=== PATIENT | male | born 1945 | race Caucasian/White ===

== ENCOUNTER → 2021-06-15 09:24 | Outpatient (CLI) | payer MEDICARE, SELFPAY ==
--- NOTE | ~2021-06-15 | XR_ITS ---
XR abdomen/kub 1V 06/15/2021 10:30 INDICATION: Hematuria TECHNIQUE: KUB COMPARISON: No prior studies for comparison. FINDINGS: Bowel gas pattern is normal. Moderate colonic fecal loading. There is no evidence of free a ir, mass, organomegaly, ascites or obstruction. No abnormal calculi are seen. The bones appear inta ct. Moderate lumbar spondylosis. IMPRESSION: 1: No acute abdominal abnormality identified. Reviewed, dictated and finalized at location A.
== END ==
PROVIDERS: PCP Family Medicine; Visit Provider Family Medicine
DX: R31.9 Hematuria, unspecified (principal); M47.816 Spondylosis without myelopathy or radiculopathy, lumbar region
CPT/HCPCS: 74018

== ENCOUNTER → 2021-06-21 10:51 | Outpatient (CLI) | payer MEDICARE, SELFPAY ==
--- NOTE | ~2021-06-21 | CT_ITS ---
EXAMINATION: CT abdomen pelvis wo con DATE: 06/21/2021 11:11 INDICATION: Gross hematuria TECHNIQUE: Computed tomography (CT) of the abdomen and pelvis was performed without intravenous contr ast. The dose-length product (DLP) was 477.95 mGy-cm. Automated exposure control and iterative recons truction technique were employed. COMPARISON: None FINDINGS: There is a 10 mm nodule of left lower lobe. The heart size is normal. The liver, spleen, pa ncreas, gallbladder, and adrenal glands are normal. There is a 1.9 cm cyst of the right kidney. The l eft kidney is unremarkable. No stones are identified in the kidneys, ureters, or bladder. There is no hydronephrosis or hydroureter. No pathologically enlarged abdominal or pelvic lymph nodes are identi fied. There is calcified atherosclerosis of the aorta and many of the other arteries. There is no fawad e intraperitoneal gas or evidence of bowel obstruction. The appendix is normal. Colonic diverticulosi s is present without evidence of diverticulitis. There appear to be changes of left inguinal hernia r epair. There are bilateral L5 pars defects with grade 1 anterolisthesis of L5 on S1. A tiny fat-conta ining umbilical hernia is noted. IMPRESSION: 1. No CT correlate for the patient's symptoms. Reviewed, dictated and finalized at location A.
== END ==
PROVIDERS: PCP Family Medicine; Visit Provider Physician Assistant
DX: R31.9 Hematuria, unspecified (principal); R91.1 Solitary pulmonary nodule
CPT/HCPCS: 74176

== ENCOUNTER 2021-09-29 09:59 | Outpatient (CLI) | payer MEDICARE, SELFPAY ==
--- NOTE | ~2021-09-29 | CT_ITS ---
EXAMINATION: CT diagnostic chest wo con EXAM DATE: 09/29/2021 10:25 INDICATION: R91.1 - Solitary pulmonary nodule TECHNIQUE: Spiral CT of the chest without contrast. Axial, coronal and sagittal images of the chest were reviewed. Coronal maximum intensity pixel images of chest reviewed. The dose-length product ( DLP) for this examination was 114.94 mGy-cm. The exposure was tailored according to patient size (au to mA exposure control), and iterative reconstruction (ASIR) was used as additional dose reduction te chnique. Correlation is made to abdomen pelvis CT 06/21/2021. FINDINGS: Round well circumscribed solid pleural-based left lower lobe nodule without spiculations i s unchanged, therefore most likely a noncalcified granuloma. Additional longer interval one-year foll ow-up CT is recommended. There are no pleural or pericardial effusions. Tracheobronchial tree is p atent. There is no mediastinal, hilar or axillary lymphadenopathy. There is no pneumothorax. He art normal in size. There is moderate to severe coronary arterial calcification, arterial sclerosis . Upper abdomen is unremarkable. There is moderate thoracic spondylosis without osteoblastic or os teolytic lesions identified. Patient has diffuse idiopathic skeletal hyperostosis (DISH). IMPRESSION: 1. Stable left lower lobe nodule probably granuloma; one-year follow-up chest CT without contrast re commended. 2. Rather extensive coronary artery calcification; consider cardiology consult if not recently evalu ated. Reviewed, dictated and finalized at location A. [employer] OFFICER IMPRESSION: 1. Stable left lower lobe nodule probably granuloma; one-year follow-up chest CT without contrast recommended. 2. Rather extensive coronary artery calcification; consider cardiology consult if not recently evaluated.
== END 2021-09-29 10:00 | disposition home or self-care (01) ==
LOC: ANHIMG 10:04
PROVIDERS: PCP Family Medicine; Visit Provider Physician Assistant
DX: R91.1 Solitary pulmonary nodule (principal); M47.814 Spondylosis without myelopathy or radiculopathy, thoracic region; M48.14 Ankylosing hyperostosis [Forestier], thoracic region
CPT/HCPCS: 71250

== ENCOUNTER 2021-10-06 00:05 | Day surgery (SDC) | payer MEDICARE, SELFPAY ==
[2021-09-20 13:53] VITALS: BMI 28.0
--- NOTE | 2021-10-05 09:21 | P.PNAN_ITS ---
Anes - Initial Pre Proc Eval Procedure: Operation Date: 10/06/21 08:00 Proposed Procedures p Screening Colonoscopy - Collin Mccormick MD Date/Time: 10/05/21 09:21 Surgeon: Collin Mccormick MD Pre Op Diagnosis: hx of colon polyps Patient Data Age: 76 Gender: M Height: 1.75 m Weight: 86 kg Allergies Allergy/AdvReac Type Severity Reaction Status Date / Time Penicillins Allergy Unknown Unknown Verified 10/06/21 06:40 Home Medications Medication Instructions Recorded Confirmed Type aspirin 81 mg tablet,delayed 81 mg PO DAILY 10/25/20 09/20/21 History release simvastatin 40 mg tablet 40 mg PO QPM #90 tablet 03/15/21 09/20/21 Rx quinapril 40 mg tablet 40 mg PO DAILY #90 tablet 07/19/21 09/20/21 Rx metoprolol succinate 25 mg 25 mg PO DAILY #30 tablet 08/08/21 09/20/21 Rx tablet,extended release 24 hr lactobacillus combination no.8 3,000,000 cell PO DAILY 09/20/21 09/20/21 History [Adult Probiotic] mecobalamin (vitamin B12) 1,000 mcg PO DAILY 09/20/21 09/20/21 History Patient hx anesthesia problems: none Family hx anesthesia problems: none Results Review: All pre-operative results and documents have been reviewed as part of the pre-operative evaluation. [facility] Past Medical History Medical History (Updated 10/05/21 @ 11:47 by Collin Mccormick MD) Acute gout Benign hypertension Chronic renal insufficiency, stage III (moderate) Colon polyp CVA (cerebral vascular accident) (~10/14/18) Hyperlipidemia Increased urinary frequency (~01/30/19) Surgical History Surgical History History of loop recorder Family History Family History Mother Cerebrovascular accident Family history of transient ischemic attacks Other Diabetes mellitus Family history of malignant neoplasm of breast in first degree relative Social History Social History Smoking status: Former smoker Tobacco type: cigarettes Second hand tobacco smoke exposure: No Smoking end date: 07/24/07 Alcohol intake: current Drinks per week: 3 Alcohol use details: Occasional Substance use: never Substance use type: does not use Living arrangements: with family Gender identity (if verbalized by the patient): Male Sexual Orientation (if Verbalized by the Patient): Straight or Heterosexual Spiritual care concerns: No Anes - Eval Final PreProcedure Day of Procedure 10/05/21 09:21 Patient weight: overweight Heart: regular rate and rhythm Lungs: clear to auscultation and normal air movement Airway: Mallampati scale class II Neurological: alert and oriented Last oral intake: >/= 8 hours ASA classification: III Emergent: no Anesthetic plan: proceed Anesthesia type and monitoring: general GIVS and standard monitoring Results Review: All pre-operative results and documents have been reviewed as part of the pre-operative evaluation. Informed Consent: The patient's anesthetic plan and its attendant risks and benefits were discussed with the patient/family/POA. Questions were solicited and answers provided to the satisfaction of the patient/family/POA.
--- NOTE | 2021-10-05 11:47 | PM.HPGS ---
History of Present Illness History of Present Illness Consent: Risks, benefits, and alternatives have been discussed and questions answered. Patient agrees to proceed with procedure. Chief complaint: hx of colon polyps Narrative: Angel Canchola is a 76 year old male referred for colon cancer screening. He has a history of polyps, including having 1 polyp removed at the time of his last colonoscopy 7 years ago. Review of Systems Review of Systems: All systems reviewed & are unremarkable except as noted in HPI and below PMFSH Past Medical History Medical History Acute gout Benign hypertension Chronic renal insufficiency, stage III (moderate) Colon polyp CVA (cerebral vascular accident) (~10/14/18) Hyperlipidemia Increased urinary frequency (~01/30/19) Surgical History Surgical History History of loop recorder Family History Family History Mother Cerebrovascular accident Family history of transient ischemic attacks Other Diabetes mellitus Family history of malignant neoplasm of breast in first degree relative Social History Social History Smoking status: Former smoker Tobacco type: cigarettes Second hand tobacco smoke exposure: No Smoking end date: 07/24/07 Alcohol intake: current Drinks per week: 3 Alcohol use details: Occasional Substance use: never Substance use type: does not use Living arrangements: with family Gender identity (if verbalized by the patient): Male Sexual Orientation (if Verbalized by the Patient): Straight or Heterosexual Spiritual care concerns: No Meds Home Medications and Allergies Home Medications Medication Instructions Recorded Confirmed Type aspirin 81 mg tablet,delayed 81 mg PO DAILY 10/25/20 09/20/21 History release simvastatin 40 mg tablet 40 mg PO QPM #90 tablet 03/15/21 09/20/21 Rx quinapril 40 mg tablet 40 mg PO DAILY #90 tablet 07/19/21 09/20/21 Rx metoprolol succinate 25 mg 25 mg PO DAILY #30 tablet 08/08/21 09/20/21 Rx tablet,extended release 24 hr lactobacillus combination no.8 3,000,000 cell PO DAILY 09/20/21 09/20/21 History [Adult Probiotic] mecobalamin (vitamin B12) 1,000 mcg PO DAILY 09/20/21 09/20/21 History Allergies Allergy/AdvReac Type Severity Reaction Status Date / Time Penicillins Allergy Unknown Unknown Verified 10/06/21 06:40 Exam Resp: Auscultation: clear to auscultation bilaterally Cardio: Rate: regular rate Rhythm: regular rhythm GI: GI Palp: Yes Soft to palpation and No Tenderness to palpation present (GI) Assessment and Plan Assessment and plan (1) Colon cancer screening: Code(s): Z12.11 - Encounter for screening for malignant neoplasm of colon Status: Acute Assessment and Plan: Colonoscopy with possible biopsy or polypectomy or cautery or injection of substances.
[2021-10-06 06:41] VITALS: BP 156/89; PULSE 86; RESP 20; TEMP 36.3; O2SAT 97
[2021-10-06] MEDS: LACTATED RINGERS 1,000 ML 150 ML IV CONT (06:44)
[2021-10-06 08:24] VITALS: BP 142/80; PULSE 85; RESP 28; O2SAT 98
[2021-10-06 08:34] VITALS: BP 143/84; PULSE 84; RESP 26; O2SAT 99
[2021-10-06 08:44] VITALS: BP 160/80; PULSE 73; RESP 22; O2SAT 100
== END 2021-10-06 09:06 | disposition home or self-care (01) ==
PROVIDERS: PCP Family Medicine; Visit Provider Internal Medicine Gastroenterology
PROC: 0DJD8ZZ Inspection of Lower Intestinal Tract, Via Natural or Artificial Opening Endoscopic (ICD-10-PCS; CPT 45378; principal; 2021-10-06 08:00)
DX: Z12.11 Encounter for screening for malignant neoplasm of colon (principal); Z86.010 Personal history of colon polyps; K64.8 Other hemorrhoids; K57.30 Diverticulosis of large intestine without perforation or abscess without bleeding; I12.9 Hypertensive chronic kidney disease with stage 1 through stage 4 chronic kidney disease, or unspecified chronic kidney disease; N18.30 Chronic kidney disease, stage 3 unspecified; Z86.73 Personal history of transient ischemic attack (TIA), and cerebral infarction without residual deficits; E78.5 Hyperlipidemia, unspecified; Z87.891 Personal history of nicotine dependence; Z79.82 Long term (current) use of aspirin
CPT/HCPCS: G0105; J2704; J7120

== ENCOUNTER 2022-04-18 09:45 | Outpatient (RCR) | payer MEDICARE, SELFPAY | END 2022-04-18 11:33 | disposition home or self-care (01) | LOC: ANHCPREHAB 09:45 | PROVIDERS: PCP Family Medicine | DX: Z95.1 Presence of aortocoronary bypass graft (principal) | CPT/HCPCS: 93798 ==

== ENCOUNTER 2023-06-18 11:08 | Outpatient (CLI) | payer MEDICARE, SELFPAY ==
--- NOTE | ~2023-06-18 | CT_ITS ---
EXAMINATION:CT diagnostic chest wo con DATE: 06/18/2023 11:22 INDICATION: Solitary pulmonary nodule. TECHNIQUE: Computed tomography (CT) of the chest was performed without intravenous contrast. Automate d exposure control and iterative reconstruction technique were employed. The dose-length product (DLP ) was 107.25 mGy-cm. COMPARISON: Chest CT 09/29/2021 FINDINGS: There is mild scarring in paraspinal right lower lobe. There is a 10 mm nodule with central calcification in left lung lower lobe, consistent with old granulomatous disease. There is a stable 3 mm nodule in right upper lobe, likely benign. No pleural effusion. There is left atrial enlargement of the heart. There are coronary artery calcifications. There are changes of coronary artery bypass grafting. No pericardial effusion. There is bilateral gynecomastia. There are gallstones in the gallb ladder, which is normal in size. There are bridging endplate osteophytes at multiple levels in the sp ine, consistent with diffuse idiopathic skeletal hyperostosis (DISH). There is kyphosis of thoracic s pine with mild chronic anterior wedging of multiple vertebral bodies. IMPRESSION: 1. Benign pulmonary nodules. Reviewed, dictated and finalized at location E.
== END 2023-06-18 11:09 | disposition home or self-care (01) ==
PROVIDERS: PCP Family Medicine; Visit Provider Family Medicine
DX: R91.1 Solitary pulmonary nodule (principal); R91.8 Other nonspecific abnormal finding of lung field
CPT/HCPCS: 71250

== ENCOUNTER 2024-03-04 22:15 | Inpatient (IN) | payer MEDICARE, SELFPAY ==
--- NOTE | ~2024-03-04 | CT_ITS ---
CT of the Abdomen and Pelvis: Indication: Abdominal pain Technique: 2.5 mm axial scans were obtained through the abdomen and pelvis following intravenous adm inistration of 100 cc of Omnipaque 350. Dose reduction technique was used on this scan by utilizing a utomated exposure control and iterative reconstruction technique. The dose-length product (DLP) was 6 00.35 mGy-cm. COMPARISON: 06/01/2021 Findings: Scans through the lung bases demonstrates stable left basilar granuloma. The liver, spleen, pancreas, adrenals and kidneys are within normal limits. Tiny gallstones are prese nt. There are atherosclerotic calcifications of the aorta. No lymphadenopathy. No bowel obstruction or bowel wall thickening. There is no evidence to suggest acute appendicitis. Images through the pelvis were performed. Urinary bladder unremarkable. No pelvic mass seen. No ascit es. Left hydrocele present. 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 Impression: Left hydrocele. Cholelithiasis. Reviewed, dictated and finalized at location . Impression: Left hydrocele. Cholelithiasis.
[2024-03-04 22:18] VITALS: BP 150/70; PULSE 95; RESP 18; TEMP 36.7; O2SAT 99
[2024-03-04 22:24] VITALS: BP 150/70
[2024-03-04 22:37] LABS: Basophils Absolute Auto 0.1 K/mm3 (0.0-0.1); Basophils Percent Auto 0.6 % (0.2-1.2); Eosinophils Absolute Auto 0.1 K/mm3 (0-0.3); Eosinophils Percent Auto 1.1 % (0-4.4); Hematocrit 36.8 % (42.0-52.0); Hemoglobin 12.4 g/dL (14.0-18.0); Immature Granulocyte Absolute 0.02 K/mm3 (0.00-0.031); Immature Granulocyte Percent A 0.2 % (0-0.5); Lymphocytes Absolute Auto 3.79 K/mm3 (0.9-3.2); Lymphocytes Percent Auto 46.7 % (18.3-44.2); Mean Corpuscular HGB Conc 33.7 g/dl (32-36); Mean Corpuscular Hemoglobin 33.2 pg (26-34); Mean Corpuscular Volume 98.4 fl (80-100); Mean Platelet Volume 9.9 fl (7.4-10.4); Monocytes Absolute Auto 0.7 K/mm3 (0.1-0.6); Monocytes Percent Auto 8.9 % (2.6-8.5); Neutrophils Absolute Auto 3.4 K/mm3 (1.3-6.7); Neutrophils Percent Auto 42.5 % (45.5-73.1); Platelet Count Result 172 k/mm3 (150-375); Red Blood Count 3.74 M/mm3 (4.6-6.20); Red Cell Distribution Width 13.2 % (11.5-14.5); White Blood Count 8.1 K/mm3 (4.5-10.0)
[2024-03-04 22:42] VITALS: BP 150/70; PULSE 89; RESP 16; O2SAT 96
[2024-03-04 22:46] VITALS: BP 151/91; PULSE 79; RESP 20
[2024-03-04 22:48] LABS: INR 1.1
[2024-03-04 23:12] LABS: Alanine Aminotransferase 18 U/L (6-50); Albumin Level 3.6 g/dL (3.5-5.1); Alkaline Phosphatase 81 U/L (38-126); Anion Gap 8 mmol/L (4-12); Aspartate Amino Transferase 27 U/L (17-59); Bilirubin,Total 0.5 mg/dL (0.2-1.3); Blood Urea Nitrogen 59 mg/dL (9-20); Calcium 8.6 mg/dL (8.4-10.2); Carbon Dioxide 22 mmol/L (22-30); Chloride 109 mmol/L (98-107); Estimated CRCL calculation 34 ml/min; Estimated Glomerular Filt Rate 42; Glucose 109 mg/dL (65-110); Potassium 4.5 mmol/L (3.4-5.0); Sodium 139 mmol/L (137-145)
--- NOTE | 2024-03-04 23:43 | ED.GIBLEED ---
HPI - GI Bleed General Chief complaint: GI Bleed <Rachael Simental PA-C - Last Filed: 03/05/24 02:01> Stated complaint: rectal bleeding <Rachael Simental PA-C - Last Filed: 03/05/24 02:01> Time Seen by Provider: 03/04/24 23:13 <Rachael Simental PA-C - Last Filed: 03/05/24 02:01> History of Present Illness HPI Narrative: 78-year-old male with a history of CAD, hypertension, hyperlipidemia, s/p CABG 1 year ago presents to the emergency department for rectal bleeding tonight. Patient states he went to the bathroom around 9:00 p.m. and had a bowel movement with streaks of dark tarry stool and bright red blood. He states he had some lower abdominal pain prior to the bowel movement that has since improved. He reports a history of the same approximately 20 years ago where he was diagnosed with diverticulitis. He denies fever, nausea or vomiting, lightheadedness or syncope, chest pain or shortness of breath, dysuria or hematuria. He is not anticoagulated. States his last, last colonoscopy was approximately 3 years ago and was unremarkable. He does have a history of 1-2 polyps on prior colonoscopies. <Rachael Simental PA-C - Last Filed: 03/05/24 02:01> 78-year-old male with a history of CAD, hypertension, hyperlipidemia, s/p CABG 1 year ago presents to the emergency department for rectal bleeding tonight. Patient states he went to the bathroom around 9:00 p.m. and had a bowel movement with streaks of dark tarry stool and bright red blood. He states he had some lower abdominal pain prior to the bowel movement that has since improved. He reports a history of the same approximately 20 years ago where he was diagnosed with diverticulitis. He denies fever, nausea or vomiting, lightheadedness or syncope, chest pain or shortness of breath, dysuria or hematuria. He is not anticoagulated. States his last, last colonoscopy was approximately 3 years ago and was unremarkable. He does have a history of 1-2 polyps on prior colonoscopies. <Emma Cerrato MD - Last Filed: 03/05/24 03:32> Related Data Home medications: Home Medications Medication Instructions Recorded Confirmed mecobalamin (vitamin B12) 1,000 1,000 mcg PO DAILY 09/20/21 04/19/23 mcg chewable tablet aspirin 81 mg tablet,delayed 81 mg PO DAILY 02/27/22 04/19/23 release <Rachael Simental PA-C - Last Filed: 03/05/24 02:01> Allergies/Adverse reactions: Allergies Allergy/AdvReac Type Severity Reaction Status Date / Time Penicillins Allergy Unknown Unknown Verified 03/04/24 22:24 <Rachael Simental PA-C - Last Filed: 03/05/24 02:01> Review of Systems Review of Systems: CONSTITUTIONAL: Denies fever, chills, or sweats. EYES: Denies visual changes, redness, or discharge. ENT: Denies rhinorrhea, congestion, sore throat, or otalgia. CARDIOVASCULAR: Denies chest pain, palpitations, or edema. RESPIRATORY: Denies cough or dyspnea. GASTROINTESTINAL: see HPI GENITOURINARY: Denies dysuria or hematuria. SKIN: Denies rash or itching. MUSCULOSKELETAL: Denies back pain, joint pain, or myalgia. NEUROLOGIC: Denies headache, numbness, or weakness. PSYCHIATRIC: Denies anxiety or depression. <Rachael Simental PA-C - Last Filed: 03/05/24 02:01> [facility] Past Medical History Medical History: Medical History Acute gout Benign hypertension Bilateral wrist pain BPH with urinary obstruction Chronic renal insufficiency, stage III (moderate) Coronary artery disease CVA (cerebral vascular accident) (~10/14/18) Fatigue Folliculitis Hematuria Hyperlipidemia Increased urinary frequency (~01/30/19) Lung nodule seen on imaging study Prediabetes Vitamin B12 deficiency <Rachael Simental PA-C - Last Filed: 03/05/24 02:01> Surgical History Surgical History: Surgical History History of loop recorder History of
[2024-03-05] VITALS (21 sets, daily range): BP systolic 114–185; BP diastolic 58–102; PULSE 59–87; RESP 17–25; TEMP 36.2–36.7; O2SAT 97–100; BMI 26.5
[2024-03-05 00:19] LABS: Appearance Urine Clear (Clear); Bilirubin Urine Negative (Negative); Blood Urine Negative (Negative); Color Urine Yellow (Yellow); Glucose Urine UA Negative (Negative); Ketones Urine Trace mg/dL (Negative); Leukocyte Esterase Ur Negative LEU/UL (Negative); Nitrate Urine Negative (Negative); Protein Urine Negative (Negative); Specific Grav Ur 1.022 (1.001-1.035); pH Urine 5.5 (5.0-9.0)
[2024-03-05] MEDS: PANTOPRAZOLE SODIUM IV 40 MG VIAL 80 MG IV PUSH (00:20)
[2024-03-05] MEDS: SODIUM CHLORIDE 0.9% IV 1,000 ML 999 ML IV CONT ×2 (00:20)
[2024-03-05 00:26] LABS: Add Urine Microscopic? NO
[2024-03-05 00:29] LABS: Lactic Acid Reflex 1.5 mmol/L (0.7-2.0); Lipase 83 U/L (23-300)
--- NOTE | 2024-03-05 04:42 | ADMGEN ---
This patient, Angel Canchola, was admitted to Medical Room 246-01. Patient/family oriented to hospital policies and general routines including ID bracelet, bed and alarms, visiting hours, pain management, procedures, bathroom and other care routines, personal items, smoking policy, room service/diet, and visiting hours. Information on how to activate the Rapid Response Team has been discussed. Patient/Family are encouraged to report perceived risks to care and to ask questions if they do not understand what they are told or what they should do.
--- NOTE | 2024-03-05 08:27 | P.CONGI_ITS ---
I, Conrado Galicia MD, have provided a substantive portion of the care of this patient and discussed the patient with my Nurse Practitioner. I have reviewed any new relevant radiographic and laboratory results including medications. I agree with her documentation as noted below.?I personally performed the medical decision making and much of the history and exam for this encounter. here with new onset of dark tarry stool, he is on aspirin, denies UGIB. Had colonoscopy 2021 that showed diverticulosis and hemorrhoids. Hgb 12, started on iv protonix and will proceed with egd. Assessment and Plan Assessment and plan (1) Melena: Code(s): K92.1 - Melena Status: Acute (2) ABLA (acute blood loss anemia): Code(s): D62 - Acute posthemorrhagic anemia Status: Acute Plan 1) Acute blood loss anemia/melena: Per patient last EGD > 20 years ago. Last colonoscopy 10/06/2021 revealed diverticulosis and internal hemorrhoids. 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 On admission HGB 12, HCT 37, MCV 98, platelets 172, INR 1.1. patient admits to an acute onset of black colored stools yesterday evening around 9:00 p.m. He has had 2 bowel movements since admission that he states varied from formed to loose and more black in color. Patient was on aspirin 81 mg daily prior to admission but denies any other NSAID or anticoagulant use. Denies any other GI complaints. * PPI daily * EGD today * keep patient NPO * care with NSAIDs, aspirin, or anticoagulants * Further recommendations to follow endoscopy Thank you very much for allowing me to share in the care of this very nice pa cristal. This report may have been done utilizing a voice recognition system. Attempts have been made to correct errors. However, there may be uncorrected grammatical, spelling, and recognition errors present. GI Consult Note Consult date/time: 03/05/24 08:27 Reason for consult: GI bleed HPI: Angel Canchola is a 78 year old male Past medical surgical history of HTN, CAD, HLD, GOUT, CKD stage 3, CVA, Hx of loop recorder, diverticulitis and s/p 4 vessel CABG 1 year ago. He presented to the emergency room yesterday with complaints of rectal bleeding. GI consult for GI bleed. Patient states that yesterday around 9:00 p.m. he had an acute onset of black stools. He has had 2 bowel movements since admission that he states were formed to loose and more also black in color. He otherwise denies any GI complaints. Prior to admission he was having daily bowel movements that were formed and non urgent. He denies abdominal pain, nausea, vomiting, bloating, odynophagia, dysphagia, reflux, regurgitation, early satiety, unexplained weight loss, appetite loss, diarrhea, constipation, or hematochezia. He was on aspirin 81 mg daily prior to admission but denies any other NSAID or anticoagulant use. ENDOSCOPY HISTORY: EGD: Per patient last EGD performed > 20 year ago COLONOSCOPY: 10/06/2021 (Dr. Mccormick) for history of colon polyps * a few small sized internal hemorrhoids seen in the rectum * Multiple diverticula present in sigmoid colon * 5 year repeat colonoscopy recommended COLONOSCOPY: 10/15/2023 (Dr. Gonsales) for personal history of colon polyps * colon polyps * Uncomplicated internal hemorrhoids * Diverticulosis IMAGING: CT abd/pelvis w/contrast 03/05/2024 Findings: Scans through the lung bases demonstrates stable left basilar granuloma. The liver, spleen, pancreas, adrenals and kidneys are within normal limits. Tiny gallstones are present. There are a
--- NOTE | 2024-03-05 08:27 | WPDGICN ---
Assessment and Plan Assessment and plan (1) Melena: Code(s): K92.1 - Melena Status: Acute (2) ABLA (acute blood loss anemia): Code(s): D62 - Acute posthemorrhagic anemia Status: Acute Plan 1) Acute blood loss anemia/melena: Per patient last EGD > 20 years ago. Last colonoscopy 10/06/2021 revealed diverticulosis and internal hemorrhoids. 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 On admission HGB 12, HCT 37, MCV 98, platelets 172, INR 1.1. patient admits to an acute onset of black colored stools yesterday evening around 9:00 p.m. He has had 2 bowel movements since admission that he states varied from formed to loose and more black in color. Patient was on aspirin 81 mg daily prior to admission but denies any other NSAID or anticoagulant use. Denies any other GI complaints. PPI daily EGD today keep patient NPO care with NSAIDs, aspirin, or anticoagulants Further recommendations to follow endoscopy Thank you very much for allowing me to share in the care of this very nice patient. This report may have been done utilizing a voice recognition system. Attempts have been made to correct errors. However, there may be uncorrected grammatical, spelling, and recognition errors present. GI Consult Note Consult date/time: 03/05/24 08:27 Reason for consult: GI bleed HPI: Angel Canchola is a 78 year old male Past medical surgical history of HTN, CAD, HLD, GOUT, CKD stage 3, CVA, Hx of loop recorder, diverticulitis and s/p 4 vessel CABG 1 year ago. He presented to the emergency room yesterday with complaints of rectal bleeding. GI consult for GI bleed. Patient states that yesterday around 9:00 p.m. he had an acute onset of black stools. He has had 2 bowel movements since admission that he states were formed to loose and more also black in color. He otherwise denies any GI complaints. Prior to admission he was having daily bowel movements that were formed and non urgent. He denies abdominal pain, nausea, vomiting, bloating, odynophagia, dysphagia, reflux, regurgitation, early satiety, unexplained weight loss, appetite loss, diarrhea, constipation, or hematochezia. He was on aspirin 81 mg daily prior to admission but denies any other NSAID or anticoagulant use. ENDOSCOPY HISTORY: EGD: Per patient last EGD performed > 20 year ago COLONOSCOPY: 10/06/2021 (Dr. Mccormick) for history of colon polyps a few small sized internal hemorrhoids seen in the rectum Multiple diverticula present in sigmoid colon 5 year repeat colonoscopy recommended COLONOSCOPY: 10/15/2023 (Dr. Gonsales) for personal history of colon polyps colon polyps Uncomplicated internal hemorrhoids Diverticulosis IMAGING: CT abd/pelvis w/contrast 03/05/2024 Findings: Scans through the lung bases demonstrates stable left basilar granuloma. The liver, spleen, pancreas, adrenals and kidneys are within normal limits. Tiny gallstones are present. There are atherosclerotic calcifications of the aorta. No lymphadenopathy. No bowel obstruction or bowel wall thickening. There is no evidence to suggest acute appendicitis. Images through the pelvis were performed. Urinary bladder unremarkable. No pelvic mass seen. No ascites. Left hydrocele present. 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 Impression: Left hydrocele. Cholelithiasis. CT abd/pelvis 06/21/2021 FINDINGS: There is a 10 mm nodule of left lower lobe. The heart size is normal. The liver, spleen, pancreas, gallbladder, and adrenal glands are normal. There is a 1.9 cm cyst of the right kidney. The left kidney is unremarkable. No stones are identified in the kidneys, ureters, or bladder. There is no hydronephrosis or hydroureter. No pathologically enlarged abdominal or pelvic lymph nodes are identified. There is calcified atherosclerosis of the aorta and many of the other arteries. There is no free intraperitoneal gas or e
--- NOTE | 2024-03-05 11:17 | PM.IMHP ---
H&P: HPI History of Present Illness Date/Time: 03/05/24 11:17 Chief Complaint: GI bleed Narrative: this is a 78-year-old male with a significant past medical history hypertension, hyperlipidemia, coronary artery disease, BPH, gout, Diverticulitis,vitamin B12 deficiency, CABG x4v who presented to the hospital with GI bleed x1 day. Patient states that he went to the bathroom around 9:00 p.m. last night and noted bright red blood per rectum and lower abdominal pain. last colonoscopy Shown diverticulosis and internal hemorrhoids. He denies any NSAID use other than a baby aspirin daily. Workup in the hospital included a CT of the abdomen and pelvis which shown left hydrocele, cholelithiasis. Initial labs revealed a white blood cell count of 8.1, hemoglobin 12.4, creatinine 1.6, EGFR 42. A UA was also obtained which shown trace ketones otherwise normal. Patient was given a dose of Protonix and 2 L of normal saline while in the ED. GI was consulted. On examination today patient is alert and oriented x4, lying in the bed. His is at the bedside. He denies any fever, chills, nausea, vomiting, diarrhea, abdominal pain, chest pain, shortness a breath. He reports that he has had 3 bowel movements with streaks of blood noted. Plan for EGD today with GI. Review of Systems Review of Systems: All systems reviewed & are unremarkable except as noted in HPI and below Constitutional: Constitutional: Reports as per HPI and Reports no additional constitutional complaints Eyes: Eyes: Reports as per HPI and Reports no additional eye complaints ENT: Reports system reviewed and no additional complaints, except as documented and Reports as per HPI Cardiovascular: Cardiovascular: Reports as per HPI and Reports no additional cardiovascular complaints Respiratory: Respiratory: Reports as per HPI and Reports no additional respiratory complaints Gastrointestinal: Gastrointestinal: Reports as per HPI and Reports no additional gastrointestinal complaints Genitourinary: Genitourinary: Reports no additional male genitourinary complaints and Reports as per HPI Musculoskeletal: Musculoskeletal: Reports no additional musculoskeletal complaints and Reports as per HPI Integumentary/Breasts: Skin/Breast: Reports system reviewed and no additional complaints, except as docu and Reports as per HPI Neurologic: Reports system reviewed and no additional complaints, except as documented and Reports as per HPI Psychiatric: Psychiatric: Reports no additional psychiatric complaints and Reports as per HPI [facility] Past Medical History Medical History (Updated 03/05/24 @ 11:28 by Christiana Kothari APRN) Acute gout Benign hypertension Bilateral wrist pain BPH with urinary obstruction Chronic renal insufficiency, stage III (moderate) Coronary artery disease CVA (cerebral vascular accident) (~10/14/18) Diverticulosis Fatigue Folliculitis Hematuria Hyperlipidemia Increased urinary frequency (~01/30/19) Lung nodule seen on imaging study Prediabetes Vitamin B12 deficiency Surgical History Surgical History History of loop recorder History of tonsillectomy S/P quadruple vessel bypass Family History Family History Mother Family history of transient ischemic attacks Cerebrovascular accident Other Diabetes mellitus Other Family history of malignant neoplasm of breast in first degree relative Social History Social History Smoking status: Former smoker Tobacco type: pipe Second hand tobacco smoke exposure: No Smoking end date: 07/24/07 Alcohol intake: never Drinks per week: 2 Alcohol use details: Occasional Substance use: never Substance use type: does not use Do You Feel Safe in your Home?: Yes Lack of Transportation: No Lack of Food: Never True Current Housing
[2024-03-05] MEDS: LACTATED RINGERS 1,000 ML 150 ML IV CONT (14:28)
--- NOTE | 2024-03-05 15:39 | WPDANESEPPF ---
Anes - Initial Pre Proc Eval Procedure: Operation Date: 03/05/24 16:30 Proposed Procedures p Esophagogastroduodenoscopy - Conrado Galicia MD Date/Time: 03/05/24 15:39 Surgeon: Christiana Kothari APRN Pre Op Diagnosis: GI bleed Patient Data Age: 78 Gender: M Height: 1.75 m Weight: 81.5 kg Last Vital Signs Temp 36.2 C L 03/05/24 14:27 Pulse 81 03/05/24 14:27 Resp 18 03/05/24 14:27 BP 134/65 03/05/24 14:27 Pulse Ox 100 03/05/24 14:27 O2 Del Method Room Air 03/05/24 14:27 Allergies Allergy/AdvReac Type Severity Reaction Status Date / Time Penicillins Allergy Unknown Unknown Verified 03/05/24 14:24 Home Medications Medication Instructions Recorded Confirmed Type mecobalamin (vitamin B12) 1,000 1,000 mcg PO DAILY 09/20/21 03/05/24 History mcg chewable tablet aspirin 81 mg tablet,delayed 81 mg PO DAILY 02/27/22 03/05/24 History release simvastatin 40 mg tablet 40 mg PO QPM #90 tabs 08/08/23 03/05/24 Rx metoprolol succinate 25 mg 25 mg PO DAILY #90 tabs 10/21/23 03/05/24 Rx tablet,extended release 24 hr Laboratory Tests 03/04/24 03/05/24 03/05/24 22:32 00:12 00:14 WBC 8.1 K/mm3 (4.5-10.0) RBC 3.74 L M/mm3 (4.6-6.20) Hgb 12.4 L g/dL (14.0-18.0) Hct 36.8 L % (42.0-52.0) MCV 98.4 fl (80-100) MCH 33.2 pg (26-34) MCHC 33.7 g/dl (32-36) RDW 13.2 % (11.5-14.5) Plt Count 172 k/mm3 (150-375) MPV 9.9 fl (7.4-10.4) Immature Gran % (Auto) 0.2 % (0-0.5) Neut % (Auto) 42.5 L % (45.5-73.1) Lymph % (Auto) 46.7 H % (18.3-44.2) [place] % (Auto) 8.9 H % (2.6-8.5) Eos % (Auto) 1.1 % (0-4.4) Baso % (Auto) 0.6 % (0.2-1.2) Lymph # (Auto) 3.79 H K/mm3 (0.9-3.2) [place] # (Auto) 0.7 H K/mm3 (0.1-0.6) Eos # (Auto) 0.1 K/mm3 (0-0.3) Baso # (Auto) 0.1 K/mm3 (0.0-0.1) Abs Immat Gran (auto) 0.02 K/mm3 (0.00-0.031) Absolute Neuts (auto) 3.4 K/mm3 (1.3-6.7) Absolute Nucleated RBC 0.000 K/mm3 (0.0-0.012) Nucleated RBC % 0.0 % (0.0-0.2) PT 14.0 Seconds (11.1-14.7) INR 1.1 APTT 25.0 Seconds (22.3-36.8) Sodium 139 mmol/L (137-145) Potassium 4.5 mmol/L (3.4-5.0) Chloride 109 H mmol/L (98-107) Carbon Dioxide 22 mmol/L (22-30) Anion Gap 8 mmol/L (4-12) BUN 59 H mg/dL (9-20) Creatinine 1.60 H mg/dL (0.7-1.3) Estim Creat Clear Calc 34 ml/min Estimated GFR 42 L (59 - ) Glucose 109 mg/dL (65-110) Lactic Acid 1.5 mmol/L (0.7-2.0) Calcium 8.6 mg/dL (8.4-10.2) Total Bilirubin 0.5 mg/dL (0.2-1.3) AST 27 U/L (17-59) ALT 18 U/L (6-50) Alkaline Phosphatase 81 U/L (38-126) Total Protein 6.0 L g/dL (6.3-8.2) Albumin 3.6 g/dL (3.5-5.1) Lipase 83 U/L (23-300) Urine Color Yellow (Yellow) Urine Appearance Clear (Clear) Urine pH 5.5 (5.0-9.0) Ur Specific [place] 1.022 (1.001-1.035) Urine Protein Negative mg/dL (Negative) Urine Glucose (UA) Negative mg/dL (Negative) Urine Ketones Trace H mg/dL (Negative) Ur Blood (Man) Negative (Negative) Urine Nitrate Negative (Negative) Urine Bilirubin Negative (Negative) Urine Urobilinogen 1.0 mg/dL (<2.0) Leukocyte Esterase Rfl Negative MK/UL (Negative) Blood Type O Positive Antibody Screen Negative Patient hx anesthesia problems: none Family hx anesthesia problems: none Results Review: All pre-operative results and documents have been reviewed as part of the
[2024-03-05] MEDS: EPINEPHrine INJ 1 MG/10 ML SYRINGE XX (16:26)
--- NOTE | 2024-03-05 16:57 | SUR.PHASEII ---
Reported to NAOMY Cheung, that patient has elevated bp of 182/88 and it is trending up. Patient has missed his metoprolol dose today. Order given and placed for 3mg per Skye.
[2024-03-05] MEDS: METOPROLOL TARTRATE INJ 5 MG/5 ML VIAL 3 MG IV PUSH (16:59)
[2024-03-05] MEDS: METOPROLOL TARTRATE INJ 5 MG/5 ML VIAL 2 MG IV PUSH (17:15)
[2024-03-05] MEDS: SIMVASTATIN 20 MG TABLET 40 MG PO (17:29)
[2024-03-05] MEDS: METOPROLOL SUCCINATE EXT REL 25 MG TABCR PO (17:30)
[2024-03-05] MEDS: PANTOPRAZOLE SODIUM IV 40 MG VIAL IV PUSH (20:56)
[2024-03-06] VITALS (8 sets, daily range): BP systolic 112–127; BP diastolic 59–68; PULSE 64–73; RESP 17–18; TEMP 36.4–36.8; O2SAT 99–100
[2024-03-06 05:20] LABS: Basophils Percent Auto 0.6 % (0.2-1.2); Eosinophils Absolute Auto 0.1 K/mm3 (0-0.3); Hematocrit 29.4 % (42.0-52.0); Hemoglobin 9.5 g/dL (14.0-18.0); Immature Granulocyte Absolute 0.01 K/mm3 (0.00-0.031); Immature Granulocyte Percent A 0.1 % (0-0.5); Lymphocytes Absolute Auto 2.34 K/mm3 (0.9-3.2); Lymphocytes Percent Auto 34.8 % (18.3-44.2); Mean Corpuscular HGB Conc 32.3 g/dl (32-36); Mean Corpuscular Hemoglobin 32.6 pg (26-34); Mean Platelet Volume 10.3 fl (7.4-10.4); Monocytes Absolute Auto 0.6 K/mm3 (0.1-0.6); Monocytes Percent Auto 8.5 % (2.6-8.5); Neutrophils Absolute Auto 3.7 K/mm3 (1.3-6.7); Platelet Count Result 158 k/mm3 (150-375); Red Blood Count 2.91 M/mm3 (4.6-6.20); Red Cell Distribution Width 13.2 % (11.5-14.5); White Blood Count 6.7 K/mm3 (4.5-10.0)
[2024-03-06 05:32] LABS: Alanine Aminotransferase 16 U/L (6-50); Albumin Level 2.9 g/dL (3.5-5.1); Alkaline Phosphatase 49 U/L (38-126); Anion Gap 3 mmol/L (4-12); Aspartate Amino Transferase 27 U/L (17-59); Bilirubin,Total 0.5 mg/dL (0.2-1.3); Blood Urea Nitrogen 49 mg/dL (9-20); Calcium 8.1 mg/dL (8.4-10.2); Carbon Dioxide 24 mmol/L (22-30); Chloride 113 mmol/L (98-107); Estimated CRCL calculation 42 ml/min; Estimated Glomerular Filt Rate 53; Glucose 101 mg/dL (65-110); Sodium 140 mmol/L (137-145)
[2024-03-06] MEDS: METOPROLOL SUCCINATE EXT REL 25 MG TABCR PO (07:57)
[2024-03-06] MEDS: PANTOPRAZOLE SODIUM IV 40 MG VIAL IV PUSH (08:00)
--- NOTE | 2024-03-06 12:21 | WPDANESPN ---
Anes - Prog Note Post-Op Date/Time: 03/06/24 12:21 Cardiovascular status: normal Respiratory status: normal Airway patency: baseline Mental status: baseline Post-Op hydration status: normal Vital Signs: Last Vital Signs Temp 36.6 C 03/06/24 11:45 Pulse 66 03/06/24 11:45 Resp 17 03/06/24 11:45 BP 116/61 03/06/24 11:45 Pulse Ox 100 03/06/24 11:45 O2 Del Method Room Air 03/06/24 08:00 Pain Score (VAS): 10/02 I/O: Intake & Output 03/05/24 03/06/24 03/06/24 23:59 07:59 15:59 Intake Total 860 650 Balance 860 650 Laboratory Tests 03/06/24 04:41 03/06/24 04:41 03/06/24 04:41 WBC 6.7 RBC 2.91 L Hgb 9.5 L Hct 29.4 L MCV 101.0 H MCH 32.6 MCHC 32.3 RDW 13.2 Plt Count 158 MPV 10.3 Immature Gran % (Auto) 0.1 Neut % (Auto) 55.0 Lymph % (Auto) 34.8 [place] % (Auto) 8.5 Eos % (Auto) 1.0 Baso % (Auto) 0.6 Lymph # (Auto) 2.34 [place] # (Auto) 0.6 Eos # (Auto) 0.1 Baso # (Auto) 0.0 Abs Immat Gran (auto) 0.01 Absolute Neuts (auto) 3.7 Absolute Nucleated RBC 0.000 Nucleated RBC % 0.0 Sodium 140 Potassium 4.0 Chloride 113 H Carbon Dioxide 24 Anion Gap 3 L BUN 49 H D Creatinine 1.30 Estim Creat Clear Calc 42 Estimated GFR 53 L Glucose 101 Calcium 8.1 L Total Bilirubin 0.5 AST 27 ALT 16 Alkaline Phosphatase 49 Total Protein 6.0 L Albumin 2.9 L Post-procedural complaints: none Patient Feedback: Patient satisfied with anesthetic care.
--- NOTE | 2024-03-06 13:41 | PM.IMPN ---
Subjective Date/time seen: 03/06/24 13:41 Objective Data Vital Signs Vital Signs: Vital Signs - 24 hr 03/05/24 14:27 03/05/24 16:37 03/05/24 16:48 Temperature 97.1 F L Pulse Rate 81 84 78 Respiratory Rate 18 25 H 20 Blood Pressure 134/65 164/92 H 182/88 H Pulse Oximetry 100 99 99 Oxygen Delivery Room Air Room Air Room Air 03/05/24 16:59 03/05/24 16:58 03/05/24 17:04 Temperature Pulse Rate 72 76 Respiratory Rate 20 Blood Pressure 185/102 H 175/93 H Pulse Oximetry 98 Oxygen Delivery Room Air 03/05/24 17:09 03/05/24 17:15 03/05/24 17:19 Temperature Pulse Rate 68 Respiratory Rate Blood Pressure 184/93 H 173/82 H Pulse Oximetry Oxygen Delivery 03/05/24 17:30 03/05/24 17:39 03/05/24 18:02 Temperature 98.1 F 98.0 F Pulse Rate 75 64 61 Respiratory Rate 17 17 Blood Pressure 171/85 H 161/72 H Pulse Oximetry 100 100 Oxygen Delivery 03/05/24 20:00 03/06/24 00:00 03/06/24 04:00 Temperature 97.7 F 97.7 F 98.2 F Pulse Rate 74 73 65 Respiratory Rate 17 18 17 Blood Pressure 117/63 117/68 112/59 L Pulse Oximetry 100 99 99 Oxygen Delivery 03/05/24 20:00 03/06/24 00:00 03/06/24 04:00 Temperature Pulse Rate 68 69 71 Respiratory Rate Blood Pressure Pulse Oximetry Oxygen Delivery 03/06/24 07:56 03/06/24 07:57 03/06/24 08:00 Temperature Pulse Rate 70 Respiratory Rate Blood Pressure 116/64 Pulse Oximetry 99 Oxygen Delivery Room Air 03/06/24 08:23 03/06/24 08:00 03/06/24 11:45 Temperature 97.6 F 97.8 F Pulse Rate 67 64 66 Respiratory Rate 17 17 Blood Pressure 127/59 L 116/61 Pulse Oximetry 99 100 Oxygen Delivery 03/06/24 12:00 Temperature Pulse Rate 67 Respiratory Rate Blood Pressure Pulse Oximetry Oxygen Delivery Intake/Output Intake/Output: Intake & Output 03/03/24 03/04/24 03/05/24 03/06/24 23:59 23:59 23:59 23:59 Intake Total 2860 650 Balance 2860 650 Meds/Results Medications: Active Medications Generic Name Dose Route Start Last Admin Trade Name Swati PRN Reason Stop Dose Admin Acetaminophen 650 mg 03/05/24 11:38 Acetaminophen 325 Mg Tablet PO Q4H PRN Mild Pain (1-3) or Fever Metoprolol Succinate 25 mg 03/05/24 11:45 03/06/24 07:57 Metoprolol Succinate Ext Rel 25 Mg Tabcr PO 25 mg DAILY JOHN Administration Ondansetron HCl 4 mg 03/05/24 11:38 Ondansetron Inj 4 Mg/2 Ml Vial IV PUSH Q6H PRN Nausea And Vomiting Pantoprazole Sodium 40 mg 03/05/24 21:00 03/06/24 08:00 Pantoprazole Sodium Iv 40 Mg Vial IV PUSH 40 mg Q12HR JOHN Administration Simvastatin 40 mg 03/05/24 18:00 03/05/24 17:29 Simvastatin 20 Mg Tablet PO 40 mg QPM JOHN Administration Radiology Results: ITS Impressions Abdomen/Pelvis CT 03/05/24 05:27 Impression: Left hydrocele. Cholelithiasis. Labs Labs: Laboratory Results - last 24 hr 03/06/24 04:41 WBC 6.7 RBC 2.91 L Hgb 9.5 L Hct 29.4 L MCV 101.0 H MCH 32.6 MCHC 32.3 RDW 13.2 Plt Count 158 MPV 10.3 Immature Gran % (Auto) 0.1 Neut % (Auto) 55.0 Lymph % (Auto) 34.8 [place] % (Auto) 8.5 Eos % (Auto) 1.0 Baso % (Auto) 0.6 Lymph # (Auto) 2.34 [place] # (Auto) 0.6 Eos # (Auto) 0.1 Baso # (Auto) 0.0 Abs Immat Gran (auto) 0.01 Absolute Neuts (auto) 3.7 Absolute Nucleated RBC 0.000 Nucleated RBC % 0.0 Sodium 140 Potassium 4.0 Chloride 113 H Carbon Dioxide 24 Anion Gap 3 L BUN 49 H D Creatinine 1.30 Estim Creat Clear Calc 42 Estimated GFR 53 L Glucose 101 Calcium 8.1 L Total Bilirubin 0.5 AST 27 ALT 16 Alkaline Phosphatase 49 Total Protein 6.0 L Albumin 2.9 L
--- NOTE | 2024-03-06 15:38 | WPDGIPROGNO ---
Progress Note: A&P Assessment and Plan (1) GI (gastrointestinal bleed): Code(s): K92.2 - Gastrointestinal hemorrhage, unspecified Status: Acute Assessment and Plan: active ugib treated yesterday continue with protonix hold aspirin for 7 days (2) ABLA (acute blood loss anemia): Code(s): D62 - Acute posthemorrhagic anemia Status: Acute Assessment and Plan: monitor for more signs of bleeding (3) Melena: Code(s): K92.1 - Melena Status: Acute Assessment and Plan: I would expect melena at least for another day (4) Chronic renal insufficiency, stage III (moderate): Code(s): N18.30 - Chronic kidney disease, stage 3 unspecified Status: Acute (5) Duodenal ulcer: Code(s): K26.9 - Duodenal ulcer, unspecified as acute or chronic, without hemorrhage or perforation Status: Acute Subjective Date/time seen: 03/06/24 15:38 Interval history: egd with active spurting bleeding in duodenum- treated with epi, cautery and clips passed dark stool earlier today but doing ok otherwise Review of Systems Review of Systems: All systems reviewed & are unremarkable except as noted in HPI and below Exam Const: General: comfortable and no acute distress HENMT: Face/Nose/Sinus: Normal nares present Eyes: General: appearance normal, both eyes and all related structures Neck: Neck: no JVD Resp: Auscultation: clear to auscultation bilaterally Cardio: Rate: regular rate Rhythm: regular rhythm GI: Inspection: non-distended GI Palp: Yes Soft to palpation Skin: General skin exam: normal color Neuro: General: gait normal Speech: normal speech Extrem: General: normal to inspection Psych: Mental Status: mental status grossly normal Objective Data Vital Signs Vital Signs: Vital Signs - 24 hr 03/05/24 16:37 03/05/24 16:48 03/05/24 16:59 Temperature Pulse Rate 84 78 72 Respiratory Rate 25 H 20 Blood Pressure 164/92 H 182/88 H Pulse Oximetry 99 99 Oxygen Delivery Room Air Room Air 03/05/24 16:58 03/05/24 17:04 03/05/24 17:09 Temperature Pulse Rate 76 Respiratory Rate 20 Blood Pressure 185/102 H 175/93 H 184/93 H Pulse Oximetry 98 Oxygen Delivery Room Air 03/05/24 17:15 03/05/24 17:19 03/05/24 17:30 Temperature Pulse Rate 68 75 Respiratory Rate Blood Pressure 173/82 H Pulse Oximetry Oxygen Delivery 03/05/24 17:39 03/05/24 18:02 03/05/24 20:00 Temperature 98.1 F 98.0 F 97.7 F Pulse Rate 64 61 74 Respiratory Rate 17 17 17 Blood Pressure 171/85 H 161/72 H 117/63 Pulse Oximetry 100 100 100 Oxygen Delivery 03/06/24 00:00 03/06/24 04:00 03/05/24 20:00 Temperature 97.7 F 98.2 F Pulse Rate 73 65 68 Respiratory Rate 18 17 Blood Pressure 117/68 112/59 L Pulse Oximetry 99 99 Oxygen Delivery 03/06/24 00:00 03/06/24 04:00 03/06/24 07:56 Temperature Pulse Rate 69 71 Respiratory Rate Blood Pressure 116/64 Pulse Oximetry Oxygen Delivery 03/06/24 07:57 03/06/24 08:00 03/06/24 08:23 Temperature 97.6 F Pulse Rate 70 67 Respiratory Rate 17 Blood Pressure 127/59 L Pulse Oximetry 99 99 Oxygen Delivery Room Air 03/06/24 08:00 03/06/24 11:45 03/06/24 12:00 Temperature 97.8 F Pulse Rate 64 66 67 Respiratory Rate 17 Blood Pressure 116/61 Pulse Oximetry 100 Oxygen Delivery Intake/Output Intake/Output: Intake & Output 03/03/24 03/04/24 03/05/24 03/06/24 23:59 23:59 23:59 23:59 Intake Total 2860 1010 Balance 2860 1010 Meds/Results Medications: Active Medications Generic Name Dose Route Start Last Admin Trade Name Freq PRN Reason Stop Dose Admin Acetaminophen 650 mg 03/05/24 11:38 Acetaminophen 325 Mg Tablet PO Q4H PRN Mild Pain (1-3) or Fever Metoprolol Succinate 25 mg 03/05/24 11:45 03/06/24 07:57 Metoprolol Succinate Ext Rel 25 Mg Tabcr PO 25 mg DAILY JOHN Administration Onda
[2024-03-06] MEDS: FERROUS SULFATE 325 MG TABLET DR PO (16:27)
--- NOTE | 2024-03-06 16:37 | PM.DS ---
DS: Admitting Diagnosis Discharge Date 03/06/24 Admitting Diagnosis GI bleed hyperlipidemia hypertension CAD DS: Discharge Diagnosis Discharge Diagnosis (1) GI (gastrointestinal bleed): Code(s): K92.2 - Gastrointestinal hemorrhage, unspecified Status: Acute (2) Hyperlipidemia: Qualifiers: Hyperlipidemia type: unspecified Qualified Code(s): E78.5 - Hyperlipidemia, unspecified Code(s): E78.5 - Hyperlipidemia, unspecified Status: Chronic (3) Primary hypertension: Code(s): I10 - Essential (primary) hypertension Status: Chronic (4) Coronary artery disease: Code(s): I25.10 - Atherosclerotic heart disease of [place] coronary artery without angina pectoris Status: Chronic DS: Summary Hospital Course Reason for hospitalization: GI bleed hyperlipidemia hypertension CAD Hospital Course: 03/05/24: this is a 78-year-old male with a significant past medical history hypertension, hyperlipidemia, coronary artery disease, BPH, gout, Diverticulitis,vitamin B12 deficiency, CABG x4v who presented to the hospital with GI bleed x1 day. Patient states that he went to the bathroom around 9:00 p.m. last night and noted bright red blood per rectum and lower abdominal pain. last colonoscopy Shown diverticulosis and internal hemorrhoids. He denies any NSAID use other than a baby aspirin daily. Workup in the hospital included a CT of the abdomen and pelvis which shown left hydrocele, cholelithiasis. Initial labs revealed a white blood cell count of 8.1, hemoglobin 12.4, creatinine 1.6, EGFR 42. A UA was also obtained which shown trace ketones otherwise normal. Patient was given a dose of Protonix and 2 L of normal saline while in the ED. GI was consulted. On examination today patient is alert and oriented x4, lying in the bed. His is at the bedside. He denies any fever, chills, nausea, vomiting, diarrhea, abdominal pain, chest pain, shortness a breath. He reports that he has had 3 bowel movements with streaks of blood noted. Plan for EGD today with GI. 03/06/24: Patient had EGD done yesterday which showed a duodenal ulcer that was actively bleeding. the ulcer was injected with epi and bleeding was well controlled. Labs today show hemoglobin of 9.5, BUN 49, EGFR 53, otherwise normal. Patient is stable for discharge at this time. He will need to follow up in 1 week for lab draw to recheck his hemoglobin. He will need to monitor for signs and symptoms of bleeding. He will follow-up with GI and 2 weeks. He will need to remain on Protonix 40 mg b.i.d. and I also placed him on ferrous sulfate. Final diagnosis: Duodenal ulcer, GI bleed, acute blood loss anemia Status at Discharge Cognitive/behavioral status at discharge: Alert oriented x4 Functional status at discharge: independent ambulation Overall status at discharge: patient is progressing back to baseline Time Spent with Patient Time attestation: Total time spent providing and/or coordinating discharge services: Time spent: Greater than 30 minutes Exam Narrative: General: In no acute distress, well nourished Head: atraumatic, no encephalopathy Eyes: EOMI, PERRLA, sclera clear ENT: moist mucous membranes, nasal passages clear Neck: supple, no JVD, no adenopathy, trachea midline Cardiac: Normal S1 and S2. RRR, No murmur, gallops or friction rubs, peripheral pulses intact. Respiratory: Lungs clear to auscultation, no adventitious lung sounds, currently on room air Gastrointestinal: soft, non-distended, non-tender, normoactive bowel sounds. : voiding without difficulty. Extremities: moves all extremities well, no edema, good ROM, strength 5/5 Skin: clean, dry, intact. No wounds or lesions. Neuro: Alert and oriented x4, cranial nerves intact, no neuro deficits. Psych: normal mood, normal affect, interactive DS: Data Data Completed and Pending Completed studies during hospitalization: Abdomen pelvis CT Pendi
== END 2024-03-06 18:04 | disposition home or self-care (01) | DRG 378 ==
LOC: ANHED 03-05 03:32 → ANH2MED 03-05 04:24
PROVIDERS: Internal Medicine Gastroenterology; Physician Assistant; Admitting Provider Internal Medicine; Emergency Provider Emergency Medicine; PCP Family Medicine; Visit Provider Nurse Practitioner Acute Care
PROC: 0DJ08ZZ Inspection of Upper Intestinal Tract, Via Natural or Artificial Opening Endoscopic (ICD-10-PCS; CPT 43235; principal; 2024-03-05 16:30)
DX: K26.0 Acute duodenal ulcer with hemorrhage (principal); D62 Acute posthemorrhagic anemia; N13.8 Other obstructive and reflux uropathy; I25.10 Atherosclerotic heart disease of native coronary artery without angina pectoris; I12.9 Hypertensive chronic kidney disease with stage 1 through stage 4 chronic kidney disease, or unspecified chronic kidney disease; N18.30 Chronic kidney disease, stage 3 unspecified; K57.30 Diverticulosis of large intestine without perforation or abscess without bleeding; K44.9 Diaphragmatic hernia without obstruction or gangrene; E53.8 Deficiency of other specified B group vitamins; E78.5 Hyperlipidemia, unspecified; N40.1 Benign prostatic hyperplasia with lower urinary tract symptoms; R73.03 Prediabetes; Z79.82 Long term (current) use of aspirin; Z95.1 Presence of aortocoronary bypass graft; Z86.010 Personal history of colon polyps; Z86.73 Personal history of transient ischemic attack (TIA), and cerebral infarction without residual deficits
CPT/HCPCS: 36415; 74177; 80053; 81003; 83605; 83690; 85025; 85610; 85730; 86850; 86900; 86901; 96361; 96374; 99285; A9270; C9113; J0171; J2001; J2704; J7030; J7120; Q9967